=== PATIENT | male | born 1990 | race Caucasian/White ===

== ENCOUNTER 2019-07-15 03:22 | Emergency (ER) | payer BC, SELFPAY ==
[~2019-07-15] VITALS: Ht 175.3 cm; Wt 112.5 kg
[2019-07-15 03:52] LABS: BASO # 0.1 10^3/uL (0.0-0.2); BASO % 0.8 % (0.0-1.0); EOS # 0.3 10^3/uL (0.0-0.5); EOS % 3.5 % (0.0-3.0); HEMATOCRIT 47.1 % (42.0-52.0); HEMOGLOBIN 16.2 g/dl (13.5-17.5); LYMPH # 2.9 10^3/uL (1.5-5.0); LYMPH % 30.3 % (24.0-44.0); MEAN CORPUSCULAR HGB CONC 34.4 g/dl (32.0-36.5); MEAN CORPUSCULAR VOLUME 81.5 fl (80.0-96.0); MONO # 0.8 10^3/uL (0.0-0.8); NEUTROPHILS # 5.5 10^3/uL (1.5-8.5); PLATELET COUNT, AUTOMATED 290 10^3/uL (150-450); RED BLOOD COUNT 5.78 10^6/uL (4.30-6.10); WHITE BLOOD COUNT 9.7 10^3/uL (4.0-10.0)
[2019-07-15 03:55] LABS: ABG BASE EXCESS -1.1 (-2.0-2.0); ABG HCO3 22.3 MEQ/L (22.0-26.0); ABG O2 SATURATION 99.5 % (95.0-99.0); ABG PARTIAL PRESSURE CO2 34.1 mmHg (35.0-45.0); ABG PARTIAL PRESSURE O2 162.9 mmHg (75.0-100.0); ABG STANDARD HCO3 23.6 MEQ/L (22.0-26.0); ABG TOTAL CO2 23.3 MEQ/L (22.0-29.0); ABG pH (ARTERIAL) 7.433 UNITS (7.350-7.450)
[2019-07-15 04:04] LABS: INR 1.03; PROTHROMBIN TIME 13.2 SECONDS (11.8-14.0)
[2019-07-15 04:05] LABS: PARTIAL THROMBOPLASTIN TIME 28.7 SECONDS (25.0-38.4)
[2019-07-15 04:28] LABS: BLOOD UREA NITROGEN 9 MG/DL (7-18); CALCIUM LEVEL 8.7 MG/DL (8.5-10.1); CARBON DIOXIDE LEVEL 27 MEQ/L (21-32); CHLORIDE LEVEL 107 MEQ/L (98-107); CK-MB VALUE MASS < 1.0 NG/ML (<3.6); CPK CREATINE PHOSPHOKINASE 87 U/L (39-308); CREATININE FOR GFR 0.96 MG/DL (0.70-1.30); GLOMERULAR FILTRATION RATE > 60.0 (>60); GLUCOSE, FASTING 133 MG/DL (70-100); MB/CK RELATIVE INDEX 1.15 (< OR =4); POTASSIUM SERUM 3.2 MEQ/L (3.5-5.1); SODIUM LEVEL 139 MEQ/L (136-145); TROPONIN I < 0.02 NG/ML (< 0.10)
[2019-07-15] MEDS ORDERED: KETOROLAC 60 MG/2 ML VIAL (J1885 PER 15MG) IM ONE (04:45)
[2019-07-15 05:37] VITALS: BP 148/72
--- NOTE | 2019-07-15 06:31 | ECGEPIP ---
[facility] - ED Test Date: 2019-07-15 Pat Name: BINDU ROBERT Department: Room: - Gender: Male Business Services Assistant: SHAILESH : 1990 Requested By: IVY CARMONA Order Number: [id number] Reading MD: Karen Garnica Measurements Intervals [place] Rate: 93 P: 39 ND: 176 QRS: 11 QRSD: 95 T: 17 QT: 358 QTc: 447 Interpretive Statements SINUS RHYTHM NONSPECIFIC ST T WAVE CHANGES NO PRIOR ECG FOR COMPARISON Electronically Signed on 07-15-2019 6:30:51 EDT by Karen Garnica
--- NOTE | 2019-07-15 08:12 | REP ---
Portable chest x-ray: Single view. History: Chest pain, low risk. No comparison study. Findings: The lungs are symmetrically aerated and clear. The pleural angles are sharp. Heart size is normal. Pulmonary vasculature is not increased. No significant bony abnormality is seen. Impression: No active disease. Electronically Signed by Cory Jones MD 07/15/2019 08:04 A
== END 2019-07-15 05:39 | disposition home or self-care (01) ==
LOC: M ED 03:22
DX: R07.89 Other chest pain (principal)
CPT/HCPCS: 36415; 36600; 71045; 80048; 82550; 82553; 82803; 84484; 85025; 85610; 85730; 93005; 96372; 99284; J1885

== ENCOUNTER 2020-11-07 21:05 | Emergency (ER) | payer MEDICAID, OTHER ==
[~2020-11-07] VITALS: Ht 175.3 cm; Wt 104.7 kg
[2020-11-07 21:06] VITALS: BP 145/82
== END 2020-11-08 01:28 | disposition left against medical advice (07) ==
LOC: M ED 21:05
DX: Z53.21 Procedure and treatment not carried out due to patient leaving prior to being seen by health care provider (principal)

== ENCOUNTER 2022-01-20 22:15 | Emergency (ER) | payer MEDICAID, OTHER ==
[~2022-01-20] VITALS: Ht 177.8 cm; Wt 102.3 kg
[2022-01-20 22:39] LABS: BASO # 0.1 10^3/uL (0.0-0.2); BASO % 0.8 % (0.0-1.0); EOS # 0.3 10^3/uL (0.0-0.5); EOS % 2.4 % (0.0-3.0); HEMATOCRIT 45.2 % (42.0-52.0); HEMOGLOBIN 16.1 g/dl (13.5-17.5); LYMPH # 3.3 10^3/uL (1.5-5.0); LYMPH % 31.4 % (24.0-44.0); MEAN CORPUSCULAR HEMOGLOBIN 29.5 pg (27.0-33.0); MEAN CORPUSCULAR HGB CONC 35.6 g/dl (32.0-36.5); MEAN CORPUSCULAR VOLUME 82.9 fl (80.0-96.0); MONO % 9.3 % (2.0-8.0); NEUTROPHILS # 5.9 10^3/uL (1.5-8.5); NEUTROPHILS % 55.5 % (36.0-66.0); PLATELET COUNT, AUTOMATED 339 10^3/uL (150-450); RED BLOOD COUNT 5.45 10^6/uL (4.30-6.10); WHITE BLOOD COUNT 10.6 10^3/uL (4.0-10.0)
[2022-01-20] MEDS ORDERED: ONDANSETRON 4MG 2ML VIAL IV ONE (23:05)
[2022-01-20] MEDS ORDERED: KETOROLAC 30 MG/ML 1ML VIAL IV ONE (23:05)
[2022-01-20] MEDS ORDERED: NS 1,000 ML IV ONE (23:05)
[2022-01-20 23:26] LABS: ALBUMIN 4.1 GM/DL (3.2-5.2); ALT/SGPT 33 U/L (12-78); BILIRUBIN,DIRECT 0.1 MG/DL (0.0-0.2); BILIRUBIN,TOTAL 0.6 MG/DL (0.2-1.0); BLOOD UREA NITROGEN 9 MG/DL (7-18); CALCIUM LEVEL 8.9 MG/DL (8.5-10.1); CARBON DIOXIDE LEVEL 25 MEQ/L (21-32); CHLORIDE LEVEL 106 MEQ/L (98-107); CREATININE FOR GFR 0.95 MG/DL (0.70-1.30); GLOMERULAR FILTRATION RATE > 60.0 (>60); GLUCOSE, FASTING 120 MG/DL (70-100); LIPASE 85 U/L (73-393); POTASSIUM SERUM 3.6 MEQ/L (3.5-5.1); SODIUM LEVEL 139 MEQ/L (136-145); TOTAL PROTEIN 7.1 GM/DL (6.4-8.2)
[2022-01-20] MEDS ORDERED: TAMSULOSIN 0.4 MG CAP PO ONE (23:45)
[2022-01-20] MEDS ORDERED: FLOM0.4C39 PO (23:49)
[2022-01-20] MEDS ORDERED: KETO10TAB PO (23:49)
[2022-01-21] VITALS: BP 159/89
== END 2022-01-21 00:02 | disposition home or self-care (01) ==
LOC: M ED 22:15
DX: N20.1 Calculus of ureter (principal); F41.9 Anxiety disorder, unspecified; Z84.1 Family history of disorders of kidney and ureter; Z79.899 Other long term (current) drug therapy
CPT/HCPCS: 74176; 80048; 80076; 81000; 81015; 83690; 85025; 96361; 96374; 99283; J1885; J2405